=== PATIENT | female | born 1945 | race African-American/Black ===

== ENCOUNTER 2024-06-15 14:12 | Emergency (ER) | payer OTHER ==
[~2024-06-15] VITALS: Ht 160 cm; Wt 82.0 kg
[2024-06-15 14:21] VITALS: O2SAT 98
[2024-06-15 16:10] LABS: BASOPHILS % 0.6 % (0.0-2.0); DIFFERENTIAL COMMENT 1; EOSINOPHILS % 3.2 % (0.0-5.0); HEMOGLOBIN. 10.6 g/dL (12.0-16.0); LYMPHOCYTES % 21.7 % (20.0-50.0); MEAN CORPUSCULAR HEMOGLOBIN 26.5 pg (28.0-32.0); MEAN CORPUSCULAR HGB CONC 31.3 g/dL (31.0-37.0); MEAN CORPUSCULAR VOLUME 84.7 fL (81.0-99.0); MONOCYTES % 5.8 % (2.0-8.0); NEUTROPHILS % 68.7 % (40.0-76.0); RED BLOOD CELL COUNT 4.01 mill/uL (4.2-5.4); RED CELL DISTRIBUTION WIDTH 14.4 % (11.6-14.6); WHITE BLOOD COUNT 6.2 x1000/uL (4.5-11.0)
[2024-06-15 16:15] LABS: CHLORIDE 109 mEq/L (98-107); POTASSIUM 4.1 mEq/L (3.5-5.1); SODIUM 142 mEq/L (136-145)
[2024-06-15 16:16] LABS: CARBON DIOXIDE 20 mEq/L (21-32)
[2024-06-15 16:17] LABS: CALCIUM 9.5 mg/dL (8.7-10.4)
[2024-06-15 16:21] LABS: CREATININE 1.3 mg/dL (0.6-1.0); GLUCOSE 80 mg/dL (70-105)
[2024-06-15 16:22] LABS: UREA NITROGEN BLOOD 20 mg/dL (9-23)
[2024-06-15 16:23] LABS: TROPONIN I HIGH SENSITIVITY 18 ng/L (3.0-34)
[2024-06-15 16:44] LABS: MEAN PLATELET VOLUME 8.5 fl (7.4-10.4); PLATELET 180 x1000/uL (130-400)
[2024-06-15 17:08] VITALS: BP 178/88; PULSE 74; RESP 16; TEMP 36.7; O2SAT 99
== END 2024-06-15 17:10 | disposition home or self-care (01) ==
LOC: ER 14:12
DX: R55 Syncope and collapse (principal); I25.2 Old myocardial infarction; I10 Essential (primary) hypertension
CPT/HCPCS: 36415; 71045; 80048; 84484; 85025; 93005; 99285